=== PATIENT | female | born 1960 | race Caucasian/White ===

== ENCOUNTER 2017-02-23 16:57 | Inpatient (IN) | payer BC ==
--- NOTE | ~2017-02-23 | HP ---
History And Physical [address] [address] NAME: FEI OCHOA : 62 STATUS : ADM [place] PAT#: [id number] AGE: 56 ADM/REG DATE : 02/23/17 MR#: [id number] REPORT SERV DATE: 02/24/17 DICTATED BY: EDWIN ATKINS DATE: 02/24/17 REPORT STATUS : Draft TRANSCRIBED BY: MODL DATE: 02/24/17 DATE OF ADMISSION: 02/23/2017 HISTORY OF PRESENT ILLNESS: This 56-year-old white female sees Dr. 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 She has since been found to have arrhythmias and is now on warfarin and Corgard therapy for paroxysmal atrial fibrillation, but has developed significant sinus bradycardia with worsening during episodes of nausea and vomiting. She also has some atypical chest discomfort with a troponin of 0.3 and 0.29, compatible with type [address] elevation on EKG. She does have sinus bradycardia and nadolol has been discontinued. She has not fell well, she says since her TAVR has a history of insulin-dependent diabetes mellitus as well as hypertension, for which she takes Hyzaar therapy. FAMILY HISTORY: Positive for aortic valve replacement in a brother. PREVIOUS OPERATIONS: Besides the TAVR include tonsillectomy, , hysterectomy, cholecystectomy, right kidney cancer with partial nephrectomy, appendiceal cancer, and left ankles surgery. HOME MEDICATIONS: Have included Tylenol, allopurinol, aspirin, atorvastatin, Zyrtec, vitamins, Flonase, insulin, losartan/HCTZ, Protonix, Corgard, and her Coumadin. LABORATORY DATA: INR is 2.1 - therapeutic. BUN is 27, creatinine 1.04, potassium is 3.7. White blood cell count 84028, hematocrit 38%, platelet count of 185,000. B-type natriuretic peptide is only 23. REVIEW OF SYSTEMS: Otherwise, all negative except for the above. PHYSICAL EXAMINATION: VITAL SIGNS: Her blood pressure is 137/66. HEENT: Head is normocephalic. Eyes, PERRLA. Nose, had no epistaxis. SKIN: Clear of ulcerations. NECK: Supple without jugular venous distention or carotid bruits. LUNGS: Clear with no wheezes, rales, or rhonchi. HEART: Regular rhythm. Normal S1, S2. There is a grade 1/6 systolic murmur at the base. No diastolic murmurs are heard. ABDOMEN: Obese. There is a midline hernia present. Bowel sounds are active. EXTREMITIES: Had no clubbing, edema, or cyanosis. Left ankle shows evidence of previous multiple surgeries. NEUROLOGIC: Intact. She is oriented to time, place, and person. CLINICAL IMPRESSIONS: 1. Sinus bradycardia with history of atrial arrhythmias, on Corgard and warfarin therapy. 2. Status post TAVR. History And Physical [address] [address] NAME: FEI OCHOA : 62 STATUS : ADM [place] PAT#: [id number] AGE: 56 ADM/REG DATE : 02/23/17 MR#: [id number] REPORT SERV DATE: 02/24/17 DICTATED BY: EDWIN ATKINS DATE: 02/24/17 REPORT STATUS : Draft TRANSCRIBED BY: UZIEL DATE: 02/24/17 3. Obesity. 4. History of kidney cancer with partial nephrectomy. 5. Hypertensive cardiovascular disease. 6. Type 2 diabetes mellitus. 7. History of appendiceal cancer. 8. Obesity. RECOMMENDATIONS: 1. I suspect she has a type 2 demand ischemia type of troponin spill; no ST elevation is seen on her EKG. 2. Continue warfarin and discontinuing nadolol. 3. Monitor her for significant bradyarrhythmias off negative chronotropic agents for possible need of pacing. 4. Dr. Gonzales will follow her when he returns to call. We will check an echocardiogram tomorrow. RB/UZIEL Edwin Atkins M.D. / [id number] CC: Daquan Mcfarlane DO
--- NOTE | ~2017-02-23 | CN ---
Consultation Report [facility] [address] [place]. [address] NAME: FEI OCHOA : 62 STATUS : ADM IN PAT#: [id number] AGE: 56 ADM/REG DATE : 02/23/17 MR#: [id number] REPORT SERV DATE: 02/26/17 DICTATED BY: INDERJIT PAULA DATE: 02/26/17 REPORT STATUS : Draft TRANSCRIBED BY: MODL DATE: 02/26/17 INFECTIOUS DISEASE CONSULTATION DATE OF CONSULTATION: 02/26/2017 REASON FOR CONSULTATION: Possible endocarditis. HISTORY OF PRESENT ILLNESS: This is a pleasant 56-year-old female, who underwent TAVR on 10/15/2016 for severe aortic stenosis with class 3 congestive heart failure in the setting of other chronic medical problems including obesity, obstructive sleep apnea, pulmonary hypertension, and history of cirrhosis. The patient tells me that she did very well for about six weeks after that, but then started having trouble with dysrhythmias resulting in trials of different drugs, which cause different side effects for her. She then says that on 02/23/2017 she developed some chest pain, which worsened and became associated also with fatigue and nausea and for these reasons presented to [facility] Emergency Department. She does note some occasional episodic sweats, but not very frequent at all and maybe some subjective fevers a month ago, but none recently. On initial evaluation, her white blood cell count was 11.5 and she was afebrile. Her initial troponin level was 0.30. The patient underwent a transthoracic echocardiogram, which revealed normal LV function with ejection fraction of 65%. Apparently, there may been some concern about a vegetation and therefore she underwent transesophageal echocardiogram today by Dr. Gonzales. This showed a definitive independently mobile echodensity on the left ventricular outflow tract, site of the transcatheter aortic valve replacement. This was 0.8 x 0.3 cm in size. There was no aortic regurgitation. I discussed the case with Dr. Gonzales earlier today and repeat blood cultures have been obtained and the patient is going to be started on vancomycin shortly. The patient notes that about five weeks ago she developed an irritated area on the skin of her anterior chest from irritation from a Holter monitor and this worsened and developed pain, redness, swelling, and some drainage and she just treated this herself with some Neosporin and hydrogen peroxide and over a few weeks it slowly improved and essentially resolved. Other than this, she denies any recent infection issues including any UTI symptoms, dental infections, or other skin or soft tissue infections. PAST MEDICAL HISTORY: In addition to the above is notable for diagnosis of a renal cell carcinoma for which she underwent surgery about three to four years ago, partial nephrectomy at [place] which was complicated by postoperative sepsis. She also had appendectomy and hysterectomy with findings of cancer in the appendix apparently. The patient has had a C- section, hysterectomy, tonsillectomy, cholecystectomy, diabetes. ALLERGIES: SHE IS INTOLERANT OF VARIOUS PAIN MEDICINES, BUT NO TRUE DRUG ALLERGIES. MEDICATIONS: Present medications include allopurinol, aspirin, Lipitor, vitamin B12, Pepcid, Flonase, insulin, Claritin, Hyzaar, Protonix, Coumadin. SOCIAL HISTORY: The patient lives with her 20-year-old daughter. Nonsmoker, nondrinker. Consultation Report [address] [place]. [address] NAME: FEI OCHOA : 62 STATUS : ADM IN 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 She is quite limited in her mobility. Walks in the house a little bit, but usually uses wheelchair to really get around. There are three pet dogs. No significant bites or scratches recently. FAMILY HISTORY: Notable for aortic valve replacement in her brother. REVIEW OF SYSTEMS: As noted above. In addition, no significant cough. No diarrhea. No particular joint complaints. No significant weight change. Otherwise, as noted above. PHYSICAL EXAMINATION: VITAL SIGNS: The patient weighs 118 kg. She has been afebrile since her admission. Blood pressure 140/67, pulse 59, respiratory rate 16. GENERAL: She is alert, no acute distress. HEAD AND NECK: Conjunctivae do show some small petechiae bilaterally. Extraocular movements intact. The oral cavity is clear. NECK: Supple. No adenopathy. LUNGS: Clear to auscultation. CARDIAC: Regular rate and rhythm. Normal S1, S2 with a 2/6 systolic murmur loudest at the upper left sternal border. ABDOMEN: Obese, soft, nontender. She has an abdominal wall hernia. EXTREMITIES: Showed no stigmata of endocarditis. She has a peripheral IV in her right arm. SKIN: Without rash. She has a small hyperpigmented macule on the anterior chest where she had this previously inflamed lesion as described above. LABORATORY STUDIES: White blood cell count today 10.6, hemoglobin 13.0, platelets 171. Creatinine 0.96. C-reactive protein 9.4. Admission albumin was 3.9, alkaline phosphatase 122, other liver function tests normal. Blood cultures from 02/25/2017 negative to date. Chest x-ray from 02/23/2017 negative. CTA of the chest from 02/23/2017 negative. IMPRESSION: The findings on the transesophageal echocardiogram are obviously concerning for the possibility of infective endocarditis in this patient with a TAVR and some nonspecific symptoms over the past few days including chest pain, fatigue, and nausea. Her blood cultures from yesterday are negative at 20 hours. Her history suggests some concern about possible seeding of the valve from this is probable skin infection she had on her chest that began about five weeks ago. She does not look acutely ill at present. PLAN: We will begin vancomycin and also add synergistic gentamicin and await blood culture results and follow closely with you. BISMARK/UZIEL Inderjit Paula, Consultation Report [address] [address] NAME: FEI OCHOA : 62 STATUS : ADM IN [facility]#: [id number] AGE: 56 ADM/REG DATE : 02/23/17 MR#: [id number] REPORT SERV DATE: 02/26/17 DICTATED BY: INDERJIT PAULA DATE: 02/26/17 REPORT STATUS : Draft TRANSCRIBED BY: UZIEL DATE: 02/26/17 Daquan / [id number] CC: Daquan Mcfarlane Gregory Joseph [place] E Atchley, M.D.
--- NOTE | ~2017-02-23 | DS ---
Discharge Summary [facility] [address] [facility] [place]. [address] NAME: FEI OCHOA : 62 STATUS : DIS IN PAT#: [id number] AGE: 56 ADM/REG DATE : 02/23/17 MR#: [id number] REPORT SERV DATE: 03/12/17 DICTATED BY: SENTHIL SUAREZ DATE: 03/11/17 REPORT STATUS : Draft TRANSCRIBED BY: MODBethel DATE: 03/11/17 Data Collection from hospitalization DISCHARGE DIAGNOSES: 1. Bradycardia. 2. Paroxysmal atrial fibrillation. 3. TAVR vegetation. 4. Demand ischemia. 5. Hypertension. 6. Hyperlipidemia. 7. Diabetes mellitus. 8. History of renal cell carcinoma. 9. Mild pulmonary hypertension. 10.Obstructive sleep apnea. 11.Arthritis. 12.Gastroesophageal reflux disease. 13.Anxiety. 14.Hiatal hernia. CONSULTATIONS: Robin Paula M.D. PROCEDURES PERFORMED: CTA of the chest on 02/23/2017. MEDICATIONS: Tylenol 500 mg every six hours as needed, Zyloprim 150 mg at bedtime, Refresh solution one to two drops as needed, aspirin 162 mg daily, Lipitor 20 mg at bedtime, Zyrtec 10 mg at bedtime, vitamin B12 3000 mcg sublingually with lunch, Flonase nasal spray one spray nasally at bedtime, NovoLog FlexPen as instructed, Levemir FlexPen 25 units subcutaneously at bedtime, Hyzaar one tablet at bedtime, Protonix 40 mg at bedtime, and Coumadin 5 mg at bedtime. She was instructed not to continue Corgard. CONDITION AT DISCHARGE: Stable. DISPOSITION: The patient was discharged home on a low-sodium, diabetic diet with activities as instructed. She would follow up with Dr. Robin Paula the week of 04/01/2017. She would follow up with Dr. Senthil Suarez on 03/04/2017. HOSPITAL COURSE: This is a 56-year-old female who had a history of transarterial aortic valve replacement about five months prior to this admission. She was found to have arrhythmias and was now on warfarin and Corgard therapy for paroxysmal atrial fibrillation, but had developed significant sinus bradycardia with worsening during episodes of nausea and vomiting. She has had some atypical chest discomfort with a troponin of 0.3 and 0.29 compatible with type [address] elevation on EKG. She does have sinus bradycardia and nadolol was discontinued. She has not felt well since the TAVR, and she has a history of insulin-dependent diabetes mellitus as well as hypertension for which she takes Hyzaar therapy. She was admitted to the hospital at this time for further evaluation and treatment. Upon admission, it was suspected that she had type 2 demand ischemia type of troponin spill Discharge Summary [facility] [address] [place]. [address] NAME: FEI OCHOA : 62 STATUS : DIS IN PAT#: [id number] AGE: 56 ADM/REG DATE : 02/23/17 MR#: [id number] REPORT SERV DATE: 03/12/17 DICTATED BY: SENTHIL SUAREZ DATE: 03/11/17 REPORT STATUS : Draft TRANSCRIBED BY: UZIEL DATE: 03/11/[address] elevation seen on the EKG. Warfarin was continued. Nadolol was discontinued. We would monitor her for significant bradyarrhythmias. Off negative chronotropic agents for possible need of pacing. Echocardiogram was requested. A CTA of the chest was performed. The following day, an echocardiogram was obtained. She felt fatigued. She had no shortness of breath or edema. She has an ejection fraction of 55-60. Beta-law was held. Coumadin was continued. It was felt that she may need to undergo a transesophageal echocardiogram. On 02/26/2017, she had no chest pain or shortness of breath. Her only complaint was fatigue. Telemetry revealed sinus rhythm/sinus bradycardia. Heart rate and rhythm were stable. Blood cultures were obtained. Transesophageal echocardiogram was performed. This was a limited study secondary to hypoxia. She was seen by Dr. Robin Paula regarding possible endocarditis. Transesophageal echocardiogram showed a definitive independently mobile echo densities on the left ventricular outflow tract, site of the transcatheter aortic valve replacement, this was 0.8 x 0.3 cm in size. There was no aortic regurgitation. Repeat blood cultures were obtained. The patient was going to began vancomycin. The patient said that about five weeks prior to this admission she developed an irritated area on the skin of her anterior chest from the irritation from a Holter monitor and this worsened as she had developed pain, redness and swelling, as well as some drainage. She has treated herself with some Neosporin and hydrogen peroxide over the past few weeks and it slowly improved and essentially resolved. Cultures were negative to date. Chest x- ray was negative. CTA of the chest had been negative. The findings on the transesophageal echocardiogram were obviously concerning for the possibility of infected endocarditis in this patient with a TAVR and some nonspecific symptoms over the past few days including chest pain, fatigue, and nausea. Blood cultures were negative at this time. Her history did suggest some concern about possible seeding of the bowels from probable skin infection that she had on her chest, which started about five weeks ago. She did not look acutely ill at the present time. Vancomycin was started. We were going to ask synergistic gentamicin and await blood culture results. On 02/27/2017, she was afebrile. Blood cultures were negative to date. She had no chest pain or shortness of breath. Blood cultures remained negative. Telemetry revealed sinus rhythm/sinus bradycardia. She had no arrhythmia. She had trace edema. The next day, she had no new complaints. She had dizziness and lightheaded for a few seconds. Discharge planning was performed. Telemetry showed no arrhythmias for three days, and only rare PVCs. Coumadin was increased. Discharge planning was being performed. Vancomycin was stopped. On 03/01/2017, blood cultures remained negative. She was afebrile. She had no new complaints. She understood that she was to seek care if she were to develop any new symptoms, especially any fevers or chills. Discharge instructions were given. Due to her improved and stable condition, she was discharged home with the above-stated instructions. Information collected by: Haley Laura I submit the above information as my discharge summary. TG/MODL Senthil Suarez M.D. Discharge Summary [address] [address] NAME: FEI OCHOA : 62 STATUS : DIS IN PAT#: [id number] AGE: 56 ADM/REG DATE : 02/23/17 MR#: [id number] REPORT SERV DATE: 03/12/17 DICTATED BY: SENTHIL SUAREZ. DATE: 03/11/17 REPORT STATUS : Draft TRANSCRIBED BY: UZIEL DATE: 03/11/17 / [id number] CC: Daquan Mcfarlane DO Hal Hill, M.D. Punit Tiku Bhutwala, M.D.
--- NOTE | ~2017-02-23 | TEE ---
Transesophageal Echocardiogram [facility] [address] [facility] [place]. [address] NAME: FEI OCHOA : 62 STATUS : ADM [place] PAT#: [id number] AGE: 56 ADM/REG DATE : 02/23/17 MR#: [id number] REPORT SERV DATE: 02/26/17 DICTATED BY: SENTHIL SUAREZ. DATE: 02/26/17 REPORT STATUS : Draft TRANSCRIBED BY: MODL DATE: 02/26/17 DANIEL REPORT INDICATIONS: 56-year-old female status post transcatheter aortic valve replacement with vague constitutional symptoms, mild leukocytosis, and abnormal echocardiogram with suspected vegetation on transthoracic study performed yesterday, 02/25/2017. Informed consent was obtained, signed on the chart prior to proceeding. A time-out was performed. Sedation was per Anesthesia, and esophageal intubation was without difficulty. TECH: TD. The overall quality of the study was good. This was a limited study that was terminated prematurely due to profound hypoxia requiring airway management by Anesthesia. Diagnosis was confirmed. FINDINGS: The transcatheter aortic valve appeared well-positioned. Transcatheter leaflets were fully mobile. There was no aortic regurgitation. There was a definitive independently mobile echo density noted on the LVOT side of the transcatheter aortic valve replacement. There was nonspecific thickening of the aortic root status post transcatheter aortic valve, but no abscess was seen. There was no perivalvular leak or perivalvular regurgitation seen. OTHER FINDINGS: As noted in the transthoracic echocardiogram report from yesterday. After airway management via Anesthesia, Ms Ochoa recovered and was breathing normally. There were no complications post procedure. CONCLUSION: TRANSCATHETER AORTIC VALVE WITH A DEFINITIVE INDEPENDENTLY MOBILE ECHODENSITY SUGGESTIVE OF VEGETATION, DESCRIBED ABOVE. NO ABSCESS OR PERIVALVULAR LEAK SEEN. NO SIGNIFICANT AORTIC REGURGITATION NOTED. AEA/UZIEL Senthil Suarez M.D. / [id number] CC: Daquan Mcfarlane DO
[~2017-02-23 16:57] MED LIST: B12250T PO; FERRETTS325 MG PO; FERROUS SULF325 M1 PO; FESO4 PO; FLONASE NAS; GLUCPH PO; HALF81 PO; HYZAAR 100/25 T1 TAB PO; L20 PO; LIPITOR20 PO; LIPITOR40 PO; NORV5 PO; PLAVIX PO; PR25 PO; PROTONIX PO; T PO; TOPXL50 PO; TYLENOL PM PO; ULTRAM50 PO; VENTOLIN HFA INH; VITC500 PO; Vitamin B12 SL; Z300 PO; ZOFRAN4 PO; ZYRTEC ALLGY10 MG PO
[2017-02-23 19:39] LABS: BASOPHILS 0.4 %; BASOPHILS ABSOLUTE 0.05 10/3/uL (0.0-0.16); EOSINOPHILS 5.3 %; EOSINOPHILS ABSOLUTE 0.61 10/3/uL (0.0-0.53); ER CBC TAT 0 Hrs 05 Mins; HEMOGLOBIN 13.3 g/dL (12.0-16.0); IMMATURE GRANULOCYTES 0.3 %; IMMATURE GRANULOCYTES ABSOLUTE 0.04 10/3/uL (0.0-0.11); LYMPHOCYTES 33.6 %; LYMPHOCYTES ABSOLUTE 3.86 10/3/uL (0.67-4.30); MEAN CORPUS HGB CONC 35.3 g/dL (32.0-36.0); MEAN CORPUSCULAR HEMOGLOB 28.9 pg (26.0-34.0); MEAN PLATELET VOLUME 10.1 fL (9.2-13.0); MONOCYTES 5.3 %; MONOCYTES ABSOLUTE 0.61 10/3/uL (0.21-1.20); NEUTROPHILS 55.1 %; NEUTROPHILS ABSOLUTE 6.33 10/3/uL (2.02-8.40); RBC DISTRIBUTION WIDTH 14.3 % (12.0-16.0); RED CELL COUNT 4.61 10/6/uL (4.0-5.6); WHITE BLOOD CELLS 11.5 10/3/uL (4.5-10.5)
[2017-02-23 19:40] LABS: HEMATOCRIT 37.7 % (36.0-48.0); MANUAL DIFF NO %; MEAN CORPUSCULAR VOLUME 81.8 fL (80-100); PLATELET COUNT 185 10/3/uL (150-400)
[2017-02-23] MEDS ORDERED: C5 PO (19:45)
[2017-02-23] MEDS ORDERED: COR40 PO (19:47)
[2017-02-23] MEDS ORDERED: PROTONIX PO (19:47)
[2017-02-23] MEDS ORDERED: ASAB PO (19:47)
[2017-02-23] MEDS ORDERED: Z300 PO (19:48)
[2017-02-23] MEDS ORDERED: LIPITOR20 PO (19:48)
[2017-02-23] MEDS ORDERED: ZYRTEC ALLGY10 MG PO (19:48)
[2017-02-23] MEDS ORDERED: FLONASE NAS (19:49)
[2017-02-23] MEDS ORDERED: HYZAAR 100/25 T1 TAB PO (19:49)
[2017-02-23 19:50] LABS: INTERNATIONAL NORMAL RATI 2.1 UNITS (-); PARTIAL THROMBO TIME 50.4 SEC (22.5-37.2)
[2017-02-23] MEDS ORDERED: VITAMIN B-121000 MC1 SL (19:50)
[2017-02-23 19:51] LABS: PROTIME (NOT ORD) 23.2 SEC (12.0-14.5)
[2017-02-23] MEDS ORDERED: NOVOPEN SC (19:52)
[2017-02-23] MEDS ORDERED: LEVEMFLXPN SC (19:52)
[2017-02-23] MEDS ORDERED: REFRESH OPH (19:53)
[2017-02-23] MEDS ORDERED: ACET500CAP PO (19:53)
[2017-02-23 19:58] LABS: ALBUMIN 3.9 G/DL (3.5-5.0); ALKALINE PHOSPHATASE 122 U/L (45-117); BUN (BLOOD UREA NITROGEN) 27 MG/DL (6-23); CALCIUM, SERUM 9.7 MG/DL (8.5-10.4); CHEST PAIN PROFILE TAT 0 Hrs 24 Mins; CHLORIDE, SERUM 103 MMOL/L (96-112); CO2 (CARBON DIOXIDE) 27 MMOL/L (24-34); CREATININE 1.04 MG/DL (0.55-1.02); DIRECT BILIRUBIN 0.1 MG/DL (0.0-0.4); GFR AFRICAN AMERICAN 70 ML/MIN (>=60); GFR NON AFRICAN AMERICAN 60 ML/MIN (>=60); GLUCOSE, SERUM 112 MG/DL (60-99); INDIRECT BILIRUBIN(NOT ORDER) 0.4 MG/DL (0.1-0.9); POTASSIUM, SERUM 3.7 MMOL/L (3.5-5.3); SGOT(AST) 24 U/L (5-40); SGPT(ALT) 33 U/L (5-65); SODIUM, SERUM 138 MMOL/L (135-148); TOTAL BILIRUBIN 0.5 MG/DL (0-1.2); TOTAL PROTEIN 8.3 G/DL (6.0-8.5)
[2017-02-24 07:59] LABS: BASOPHILS 0.4 %; BASOPHILS ABSOLUTE 0.04 10/3/uL (0.0-0.16); EOSINOPHILS 5.3 %; EOSINOPHILS ABSOLUTE 0.53 10/3/uL (0.0-0.53); HEMATOCRIT 35.2 % (36.0-48.0); HEMOGLOBIN 12.3 g/dL (12.0-16.0); IMMATURE GRANULOCYTES 0.4 %; IMMATURE GRANULOCYTES ABSOLUTE 0.04 10/3/uL (0.0-0.11); LYMPHOCYTES 37.5 %; LYMPHOCYTES ABSOLUTE 3.75 10/3/uL (0.67-4.30); MANUAL DIFF NO %; MEAN CORPUS HGB CONC 34.9 g/dL (32.0-36.0); MEAN CORPUSCULAR HEMOGLOB 28.6 pg (26.0-34.0); MEAN CORPUSCULAR VOLUME 81.9 fL (80-100); MEAN PLATELET VOLUME 9.9 fL (9.2-13.0); MONOCYTES 6.3 %; MONOCYTES ABSOLUTE 0.63 10/3/uL (0.21-1.20); NEUTROPHILS 50.1 %; PLATELET COUNT 160 10/3/uL (150-400); RBC DISTRIBUTION WIDTH 14.7 % (12.0-16.0)
[2017-02-24 08:18] LABS: CHOL/HDL RATIO(NOT ORDER) 4.1 (0-5); CHOLESTEROL 145 MG/DL (< 200); CPK 118 U/L (0-200); HDL CHOLESTEROL 35 MG/DL (> 49); LDL CHOLESTEROL 58 MG/DL (< 130); NON-HDL CHOLESTEROL 110 MG/DL (< 160); SGOT(AST) 19 U/L (5-40); TRIGLYCERIDE 261 MG/DL (< 150)
[2017-02-24 08:20] LABS: CK-MB 3.7 NG/ML; TROPONIN I 0.35 NG/ML (<0.05)
[2017-02-24 10:34] LABS: INTERNATIONAL NORMAL RATI 1.9 UNITS (-); PROTIME (NOT ORD) 21.6 SEC (12.0-14.5)
[2017-02-25 04:13] LABS: INTERNATIONAL NORMAL RATI 2.4 UNITS (-); PROTIME (NOT ORD) 25.8 SEC (12.0-14.5)
[2017-02-26 04:31] LABS: INTERNATIONAL NORMAL RATI 1.8 UNITS (-)
[2017-02-26 04:32] LABS: BASOPHILS 0.3 %; BASOPHILS ABSOLUTE 0.03 10/3/uL (0.0-0.16); EOSINOPHILS ABSOLUTE 0.53 10/3/uL (0.0-0.53); HEMATOCRIT 37.2 % (36.0-48.0); IMMATURE GRANULOCYTES 0.3 %; IMMATURE GRANULOCYTES ABSOLUTE 0.03 10/3/uL (0.0-0.11); LYMPHOCYTES 36.9 %; MEAN CORPUS HGB CONC 34.9 g/dL (32.0-36.0); MEAN CORPUSCULAR HEMOGLOB 28.9 pg (26.0-34.0); MEAN CORPUSCULAR VOLUME 82.7 fL (80-100); MEAN PLATELET VOLUME 10.2 fL (9.2-13.0); MONOCYTES 5.5 %; MONOCYTES ABSOLUTE 0.58 10/3/uL (0.21-1.20); PLATELET COUNT 171 10/3/uL (150-400); RBC DISTRIBUTION WIDTH 14.3 % (12.0-16.0); WHITE BLOOD CELLS 10.6 10/3/uL (4.5-10.5)
[2017-02-26 04:34] LABS: MANUAL DIFF NO %
[2017-02-26 04:35] LABS: PROTIME (NOT ORD) 20.4 SEC (12.0-14.5)
[2017-02-26 04:42] LABS: BUN (BLOOD UREA NITROGEN) 25 MG/DL (6-23); CHLORIDE, SERUM 105 MMOL/L (96-112); CO2 (CARBON DIOXIDE) 25 MMOL/L (24-34); CREATININE 0.96 MG/DL (0.55-1.02); GFR AFRICAN AMERICAN 77 ML/MIN (>=60); GFR NON AFRICAN AMERICAN 67 ML/MIN (>=60); GLUCOSE, SERUM 105 MG/DL (60-99); POTASSIUM, SERUM 3.9 MMOL/L (3.5-5.3); SODIUM, SERUM 139 MMOL/L (135-148)
[2017-02-27 06:00] LABS: BASOPHILS 0.1 %; BASOPHILS ABSOLUTE 0.01 10/3/uL (0.0-0.16); EOSINOPHILS 4.3 %; EOSINOPHILS ABSOLUTE 0.41 10/3/uL (0.0-0.53); HEMATOCRIT 35.7 % (36.0-48.0); HEMOGLOBIN 12.3 g/dL (12.0-16.0); IMMATURE GRANULOCYTES 0.3 %; IMMATURE GRANULOCYTES ABSOLUTE 0.03 10/3/uL (0.0-0.11); LYMPHOCYTES 34.8 %; LYMPHOCYTES ABSOLUTE 3.34 10/3/uL (0.67-4.30); MANUAL DIFF NO %; MEAN CORPUS HGB CONC 34.5 g/dL (32.0-36.0); MEAN CORPUSCULAR HEMOGLOB 28.6 pg (26.0-34.0); MEAN PLATELET VOLUME 10.2 fL (9.2-13.0); MONOCYTES 7.4 %; MONOCYTES ABSOLUTE 0.71 10/3/uL (0.21-1.20); NEUTROPHILS 53.1 %; PLATELET COUNT 152 10/3/uL (150-400); RBC DISTRIBUTION WIDTH 14.3 % (12.0-16.0); WHITE BLOOD CELLS 9.6 10/3/uL (4.5-10.5)
[2017-02-27 06:01] LABS: INTERNATIONAL NORMAL RATI 1.8 UNITS (-); PROTIME (NOT ORD) 20.4 SEC (12.0-14.5)
[2017-02-27 06:04] LABS: BUN (BLOOD UREA NITROGEN) 23 MG/DL (6-23); CALCIUM, SERUM 9.7 MG/DL (8.5-10.4); CHLORIDE, SERUM 106 MMOL/L (96-112); CO2 (CARBON DIOXIDE) 29 MMOL/L (24-34); CREATININE 1.01 MG/DL (0.55-1.02); GFR AFRICAN AMERICAN 73 ML/MIN (>=60); GFR NON AFRICAN AMERICAN 63 ML/MIN (>=60); GLUCOSE, SERUM 107 MG/DL (60-99); POTASSIUM, SERUM 3.9 MMOL/L (3.5-5.3); SODIUM, SERUM 141 MMOL/L (135-148)
[2017-02-28 05:10] LABS: BASOPHILS 0.3 %; BASOPHILS ABSOLUTE 0.03 10/3/uL (0.0-0.16); EOSINOPHILS ABSOLUTE 0.49 10/3/uL (0.0-0.53); HEMATOCRIT 35.9 % (36.0-48.0); HEMOGLOBIN 12.6 g/dL (12.0-16.0); IMMATURE GRANULOCYTES 0.3 %; IMMATURE GRANULOCYTES ABSOLUTE 0.03 10/3/uL (0.0-0.11); LYMPHOCYTES 33.8 %; LYMPHOCYTES ABSOLUTE 3.31 10/3/uL (0.67-4.30); MEAN CORPUS HGB CONC 35.1 g/dL (32.0-36.0); MEAN CORPUSCULAR HEMOGLOB 28.8 pg (26.0-34.0); MEAN PLATELET VOLUME 9.9 fL (9.2-13.0); MONOCYTES 6.4 %; MONOCYTES ABSOLUTE 0.63 10/3/uL (0.21-1.20); NEUTROPHILS 54.2 %; NEUTROPHILS ABSOLUTE 5.31 10/3/uL (2.02-8.40); PLATELET COUNT 134 10/3/uL (150-400); RBC DISTRIBUTION WIDTH 14.5 % (12.0-16.0); RED CELL COUNT 4.38 10/6/uL (4.0-5.6); WHITE BLOOD CELLS 9.8 10/3/uL (4.5-10.5)
[2017-02-28 05:12] LABS: MANUAL DIFF NO %
[2017-02-28 05:17] LABS: INTERNATIONAL NORMAL RATI 1.7 UNITS (-); PROTIME (NOT ORD) 19.8 SEC (12.0-14.5)
[2017-03-01 06:24] LABS: INTERNATIONAL NORMAL RATI 1.9 UNITS (-); PROTIME (NOT ORD) 21.3 SEC (12.0-14.5)
== END 2017-03-01 15:57 | disposition home or self-care (01) | DRG 308 ==
LOC: ER 16:57 → 6NO 23:59
PROVIDERS: Emergency Medicine; Internal Medicine; Internal Medicine Cardiovascular Disease
PROC: B246ZZ4 Ultrasonography of Right and Left Heart, Transesophageal (ICD-10-PCS; principal; 2017-02-25)
DX: R00.1 Bradycardia, unspecified (principal); I33.0 Acute and subacute infective endocarditis; I24.8 Other forms of acute ischemic heart disease; T82.6XXA Infection and inflammatory reaction due to cardiac valve prosthesis, initial encounter; I11.9 Hypertensive heart disease without heart failure; Z68.41 Body mass index [BMI] 40.0-44.9, adult; I27.2 Other secondary pulmonary hypertension; Z85.528 Personal history of other malignant neoplasm of kidney; T44.7X5A Adverse effect of beta-adrenoreceptor antagonists, initial encounter; E66.9 Obesity, unspecified; G47.33 Obstructive sleep apnea (adult) (pediatric); D63.8 Anemia in other chronic diseases classified elsewhere; K74.60 Unspecified cirrhosis of liver; I48.0 Paroxysmal atrial fibrillation; Z85.89 Personal history of malignant neoplasm of other organs and systems; Z90.5 Acquired absence of kidney; Z90.710 Acquired absence of both cervix and uterus; Z79.4 Long term (current) use of insulin; Z90.49 Acquired absence of other specified parts of digestive tract; Z79.01 Long term (current) use of anticoagulants
CPT/HCPCS: 71010; 71275; 80048; 80061; 80076; 80170; 81001; 82550; 82553; 82962; 83690; 83735; 83880; 84450; 84484; 85025; 85610; 85652; 85730; 86140; 87040; 93005; 93306; 93312; 93320; 93325; 96374; 96375; 99291; A9270-GY; J1170; J1580; J2405; J3370; Q9967